=== PATIENT | female | born 1990 | race Caucasian/White ===

== ENCOUNTER 2017-11-16 11:03 | Emergency (ER) | payer MEDICAID ==
[~2017-11-16] VITALS: Ht 165.1 cm; Wt 99.8 kg
[~2017-11-16 11:03] MED LIST: [UNRECOGNIZED DRUG - CODE] PO
[2017-11-16 11:08] VITALS: BP 114/64
--- NOTE | 2017-11-16 11:32 | NUR ---
PATIENT PRESENTS TO ED WITH REPORTS WHITE PATCHES TOTONGUE AND FEVER X 4 DAYS. MED HX: NONE RX: NONE; DENIES N/V/D; SKIN IS PINK/WARM/DRY; AAOX4 WITH EVEN AND STEADY GAIT; LUNGS CLEAR BL; HR EVEN AND REGULAR; PT DENIES ANY FEVER, CP, SOB, OR COUGH AT THIS TIME; PATIENT STATES PAIN OF 9/10 AT THIS TIME; VSS; PATIENT POSITIONED FOR COMFORT; HOB ELEVATED; BEDRAILS UP X2; BED DOWN. ER MD MADE AWARE OF PT STATUS.
[2017-11-16 13:09] VITALS: BP 114/64
--- NOTE | 2017-11-16 13:50 | NUR ---
PATIENT ELOPED FROM FACILITY. DISCHARGE INSTRUCTIONS NOT GIVEN TO PATIENT. NOTIFIED.
== END 2017-11-16 13:49 | disposition left against medical advice (07) ==
LOC: MED 11:03
DX: K12.30 Oral mucositis (ulcerative), unspecified (principal)
CPT/HCPCS: 99281

== ENCOUNTER 2017-11-16 18:47 | Emergency (ER) | payer MEDICAID ==
[~2017-11-16] VITALS: Ht 165.1 cm; Wt 99.8 kg
[2017-11-16 18:51] VITALS: BP 130/72
--- NOTE | 2017-11-16 19:05 | NUR ---
27/F CAME IN W C/O SORE THROAT, WHITE PATCHES ON THROAT, FEVER OF 103 AT HOME. PT CURRENTLY AFEBRILE. ALL LUNG SOUNDS CBTA, 16RR EVEN AND UNLABORED. DENIES SOB/COUGH/CP, N/V/D. DENIES OTHER PMH/RX, TOOK TYLENOL AT NOON TODAY WITH RELIEF OF SYMPTOMS.
[2017-11-16] MEDS ORDERED: PENICILLIN G BENZATHINE C-R 1.2 MU/2 ML SYR IM ONE (20:25)
[2017-11-16 20:50] VITALS: BP 134/76
== END 2017-11-16 20:50 | disposition home or self-care (01) ==
LOC: MED 18:47
DX: J02.0 Streptococcal pharyngitis (principal)
CPT/HCPCS: 96372; 99283; J0558

== ENCOUNTER 2022-05-31 18:28 | Emergency (ER) | payer MEDICAID ==
[~2022-05-31] VITALS: Ht 165.1 cm; Wt 83.9 kg
[2022-05-31 18:37] VITALS: BP 120/70
[2022-05-31] MEDS ORDERED: IBUP-2213 PO (19:45)
--- NOTE | 2022-05-31 19:45 | NUR ---
PATIENT LEFT WITHOUT BEING SEEN BY DR. Gomez. NO FURTHER CARE PROVIDED FOR PATIENT.
[2022-06-01] MEDS ORDERED: PHEN-1593 PO (14:39)
[2022-06-01] MEDS ORDERED: IBUP-2213 PO (14:39)
[2022-06-01] MEDS ORDERED: CIPR500T4 PO (14:39)
== END 2022-05-31 19:45 | disposition left against medical advice (07) ==
LOC: MED 18:28
DX: N39.0 Urinary tract infection, site not specified (principal); Z53.21 Procedure and treatment not carried out due to patient leaving prior to being seen by health care provider

== ENCOUNTER 2022-06-01 13:21 | Emergency (ER) | payer MEDICAID ==
[~2022-06-01] VITALS: Ht 165.1 cm; Wt 84.4 kg
[2022-06-01 13:45] VITALS: BP 95/40
--- NOTE | 2022-06-01 13:51 | NUR ---
PT AMB TO BED 12.
[2022-06-01] MEDS ORDERED: KETOROLAC 60 MG/2 ML VIAL IM ONE (14:35)
[2022-06-01] MEDS ORDERED: IBUP-2213 PO (14:39)
[2022-06-01] MEDS ORDERED: CIPR500T4 PO (14:39)
[2022-06-01] MEDS ORDERED: PHEN-1593 PO (14:39)
--- NOTE | 2022-06-01 14:50 | NUR ---
31 y/o female bib self from home, c/o dysuria, hematuria, low back pain and lower abd pain for 5 days. a&ox4, ambulates with steady gait. denies fever, chills, sob, cp, cough, n/v/d. pmh: denies nka med: denies
--- NOTE | 2022-06-01 14:52 | NUR ---
Patient discharged with v/s stable. Written and verbal after care instructions given and explained. Patient alert, oriented and verbalized understanding of instructions. Ambulatory with steady gait. All questions addressed prior to discharge. ID band removed. Patient advised to follow up with PMD. Rx of cipro, motrin, pyridium (sent) given. Patient educated on indication of medication including possible reaction and side effects. Opportunity to ask questions provided and answered.
[2022-06-01 14:53] VITALS: BP 141/89
== END 2022-06-01 14:53 | disposition home or self-care (01) ==
LOC: MED 13:21
DX: N39.0 Urinary tract infection, site not specified (principal); R31.9 Hematuria, unspecified; M54.50 Low back pain, unspecified; F17.200 Nicotine dependence, unspecified, uncomplicated; Z79.899 Other long term (current) drug therapy
CPT/HCPCS: 81002; 81025; 99283

== ENCOUNTER 2023-11-02 16:06 | Observation (INO) | payer MEDICAID ==
[~2023-11-02] VITALS: Ht 165.1 cm; Wt 98.4 kg
[~2023-11-02 16:06] MED LIST changes: +CIPR500T4 PO; +IBUP-2213 PO; +PHEN-1593 PO
[2023-11-02] MEDS ORDERED: LACTATED RINGERS 500 ML IV ONE (16:30)
[2023-11-02 16:54] VITALS: BP 120/66; PULSE 129; RESP 18; TEMP 97.7
[2023-11-02] MEDS: LACTATED RINGERS 1,000 ML IV SCH (17:52)
[2023-11-02 18:19] LABS: BASOPHILS # (AUTO) 0.1 K/uL (0.00-0.22); BASOPHILS % (AUTO) 0.5 % (0.0-2.0); EOSINOPHILS % (AUTO) 0.3 % (0.0-4.0); HEMATOCRIT 34.3 % (36-48); HEMOGLOBIN 11.5 g/dL (12.0-16.0); LYMPHOCYTES # (AUTO) 1.5 K/uL (2.5-16.5); LYMPHOCYTES % (AUTO) 8.4 % (20.5-51.1); MEAN CORPUSCULAR HEMOGLOBIN 28 pg (27-31); MEAN CORPUSCULAR HGB CONC 33 g/dL (33-37); MONOCYTES # (AUTO) 1.1 K/uL (0.8-1.0); MONOCYTES % (AUTO) 6.5 % (1.7-9.3); NEUTROPHILS # (AUTO) 14.9 K/uL (1.8-7.7); NEUTROPHILS % (AUTO) 84.3 % (42.2-75.2); PLATELET COUNT (AUTO) 300 K/uL (140-450); RED BLOOD CELL COUNT(AUTO) 4.04 MIL/uL (4.20-5.40); RED CELL DISTRIBUTION WIDTH 14.4 % (11.6-13.7); WHITE BLOOD COUNT (AUTO) 17.6 K/uL (4.8-10.8)
[2023-11-02 18:33] LABS: APPEARANCE,URINE CLEAR (CLEAR); BILIRUBIN,URINE NEGATIVE (NEGATIVE); BLOOD, URINE NEGATIVE (NEGATIVE); COLOR,URINE YELLOW (YELLOW); LEUKOCYTE ESTERASE ,URINE TRACE (NEGATIVE); NITRITE, URINE NEGATIVE (NEGATIVE); PROTEIN,URINE NEGATIVE (NEGATIVE); UGLUCOSE NEGATIVE (NEGATIVE); UROBILINOGEN,URINE 0.2 EU/dL (0.2 - 1)
[2023-11-02 18:35] LABS: ALBUMIN 2.5 g/dL (3.4-5.0); ANION GAP 15.4 (8-16); BACTERIA,URINE 0-2 /HPF (None Seen); CALCIUM 8.1 mg/dL (8.5-10.1); CARBON DIOXIDE 21.5 mmol/L (21-32); CREATININE 0.6 mg/dL (0.6-1.3); MUCUS,URINE None Seen /LPF (None Seen); POTASSIUM 3.9 mmol/L (3.5-5.1); RBC,URINE 0 /HPF (0-5); SQUAMOUS EPITHELIAL CELL,UR 0-3 (FEW) /LPF (0-3 (FEW)); TOTAL BILIRUBIN 0.4 mg/dL (0.0-1.0); TOTAL PROTEIN, SERUM 7.3 g/dL (6.4-8.2); WBC,URINE 0-5 /HPF (0-5)
[2023-11-02 18:46] LABS: AMPHETAMINE, URINE NEGATIVE ng/ml (NEG <=1000); BARBITURATE, URINE NEGATIVE ng/ml (NEG <=200); BENZODIAZEPINE, URINE NEGATIVE ng/mL (NEG <=200); CANNABINOID, URINE NEGATIVE ng/mL (NEG <=50); COCAINE, URINE NEGATIVE ng/mL (NEG <=300); OPIATE, URINE NEGATIVE ng/mL (NEG <=2000); PHENCYCLIDINE SCREEN,URINE NEGATIVE ng/mL (NEG <=25)
[2023-11-04 08:08] LABS: HEPATITIS B SURFACE ANTIGEN Negative (Negative); RUBELLA AB IGG 3.96 index (Immune >0.99)
== END 2023-11-02 19:05 | disposition home or self-care (01) ==
LOC: MLD 16:06
PROVIDERS: ADMIT Obstetrics & Gynecology; ATTEND Obstetrics & Gynecology
DX: O26.893 Other specified pregnancy related conditions, third trimester (principal); R10.9 Unspecified abdominal pain; O99.891 Other specified diseases and conditions complicating pregnancy; M54.9 Dorsalgia, unspecified; Z3A.37 37 weeks gestation of pregnancy
CPT/HCPCS: 36415; 76805; 80053; 80305; 81001; 85025; 86592; 86703; 86762; 86886; 86900; 86901; 87340; 96360; G0378; G0379; J7120; Q0092

== ENCOUNTER 2023-11-06 18:10 | Observation (INO) | payer MEDICAID ==
[~2023-11-06] VITALS: Ht 165.1 cm; Wt 98.9 kg
[2023-11-06 20:04] VITALS: BP 109/63; PULSE 95; RESP 18; TEMP 98
== END 2023-11-06 20:45 | disposition home or self-care (01) ==
LOC: MLD 18:10
PROVIDERS: ADMIT Obstetrics & Gynecology; ATTEND Obstetrics & Gynecology
DX: O62.9 Abnormality of forces of labor, unspecified (principal); Z3A.38 38 weeks gestation of pregnancy
CPT/HCPCS: 81000; G0378